=== PATIENT | female | born 1975 | race Caucasian/White ===

== ENCOUNTER 2017-11-03 14:24 | Emergency (ER) | payer OTHER ==
[~2017-11-03] VITALS: Ht 165.1 cm; Wt 108.0 kg
[~2017-11-03 14:24] MED LIST: CEPH-568 PO; IBUP-1480 PO; OXYC-130 PO
[2017-11-03 14:33] VITALS: BP_SYST 135
[2017-11-03] MEDS ORDERED: NACL 0.9% 1,000 ML IV ONE (14:49)
[2017-11-03] MEDS ORDERED: MORPHINE SULFATE 10 MG/ML VIAL IM ONE (15:00)
[2017-11-03] MEDS ORDERED: ONDANSETRON HCL 4 MG/2 ML VIAL IVP ONE (15:00)
[2017-11-03 15:12] LABS: BASOPHILS # (AUTO) 0.1 K/uL (0.0-0.2); BASOPHILS % (AUTO) 0.7 % (0.0-2.0); EOSINOPHILS # (AUTO) 0.1 K/uL (0.0-0.4); EOSINOPHILS % (AUTO) 0.5 % (0.0-4.0); HEMATOCRIT 41.7 % (36-48); HEMOGLOBIN 13.9 g/dL (12.0-16.0); LYMPHOCYTES # (AUTO) 1.5 K/uL (1.0-5.5); MEAN CORPUSCULAR HEMOGLOBIN 31 pg (27-31); MEAN CORPUSCULAR HGB CONC 33 % (32-36); MEAN CORPUSCULAR VOLUME 93 fL (79.0-98.0); MONOCYTES # (AUTO) 0.5 K/uL (0.0-1.0); MONOCYTES % (AUTO) 3.6 % (1.7-9.3); NEUTROPHILS # (AUTO) 11.4 K/uL (1.8-7.7); NEUTROPHILS % (AUTO) 84.2 % (40.0-70.0); PLATELET COUNT (AUTO) 435 K/uL (130-430); RED BLOOD CELL COUNT(AUTO) 4.46 MIL/uL (4.2-6.2); RED CELL DISTRIBUTION WIDTH 12.8 % (9.0-15.0); WHITE BLOOD COUNT (AUTO) 13.6 K/uL (4.8-10.8)
[2017-11-03 15:29] LABS: CALCIUM 9.1 mg/dL (8.4-11.0); CREATININE 0.76 mg/dL (0.55-1.30); POTASSIUM 3.8 mmol/L (3.5-5.1)
[2017-11-03 15:40] LABS: ALBUMIN 3.7 g/dL (3.4-4.8); TOTAL BILIRUBIN 0.6 mg/dL (0.0-1.0)
[2017-11-03] MEDS ORDERED: MORPHINE 4 MG/ML INJ. SYRINGE IVP ONE ×2 (16:15→17:15)
[2017-11-03] MEDS ORDERED: PANTOPRAZOLE SODIUM 40 MG/VIAL (PROTONIX) IVP ONE (16:45)
[2017-11-03] MEDS ORDERED: MAG HYDROX/AL HYDROX/SIMETH 30 ML, BELLADONNA ALKALOIDS/PHENOBARB 10 ML, LIDOCAINE VISC... PO ONE ×3 (16:45)
[2017-11-03 17:48] LABS: BILIRUBIN,URINE NEGATIVE (NEGATIVE); BLOOD, URINE 1+ (NEGATIVE); CLARITY/URINE SL CLOUDY (CLEAR); COLOR,URINE YELLOW (YELLOW); GLUCOSE,URINE NEGATIVE (NEGATIVE); KETONES,URINE 3+ (NEGATIVE); LEUKOCYTE ESTERASE ,URINE NEGATIVE (NEGATIVE); NITRITE, URINE POSITIVE (NEGATIVE); PROTEIN URINE NEGATIVE (NEGATIVE); UROBILINOGEN,URINE 0.2 (0.2-1.0)
[2017-11-03 17:58] LABS: BACTERIA,URINE MANY /HPF (None Seen); WBC,URINE 0-3 /HPF (0-3)
[2017-11-03 17:59] LABS: MUCUS,URINE None Seen /LPF (None Seen)
[2017-11-03 18:28] VITALS: BP_SYST 140
== END 2017-11-03 18:28 | disposition home or self-care (01) ==
LOC: SED 14:24
DX: R10.13 Epigastric pain (principal); R11.2 Nausea with vomiting, unspecified; R03.0 Elevated blood-pressure reading, without diagnosis of hypertension; Z90.710 Acquired absence of both cervix and uterus; Z88.1 Allergy status to other antibiotic agents; Z88.5 Allergy status to narcotic agent
CPT/HCPCS: 36415; 74176; 76700; 80053; 81000; 81025; 83690; 85025; 87086; 96361; 96374; 96375; 96376; 99285; C9113; J2001; J2270 ×2; J2405; J7030

== ENCOUNTER 2018-04-24 00:48 | Inpatient (IN) | payer OTHER ==
[~2018-04-24] VITALS: Ht 165.1 cm; Wt 117.9 kg
[~2018-04-24 00:48] MED LIST changes: -IBUP-1480 PO; +IBUP800T54 PO
[2018-04-24 01:10] VITALS: BP_SYST 114
--- NOTE | 2018-04-24 01:10 | NUR ---
Patient to ER bed 5 to gown for evaluation. Side rails up. Report given to Gabby.
[2018-04-24] MEDS ORDERED: NACL 0.9% 1,000 ML IV ONE (01:32)
--- NOTE | 2018-04-24 01:34 | NUR ---
ER at bedside examining patient.
[2018-04-24] MEDS ORDERED: ONDANSETRON HCL 4 MG/2 ML VIAL IVP ONE (01:45)
[2018-04-24] MEDS ORDERED: DIPHENHYDRAMINE INJ 50 MG/ML VIAL IVP ONE (01:45)
[2018-04-24] MEDS ORDERED: MORPHINE 4 MG/ML INJ. SYRINGE IVP ONE (01:45)
--- NOTE | 2018-04-24 01:45 | NUR ---
Pt states she has upper abdominal pain radiating to back 01/25 starting last night after dinner. pt states she is nauseous and has been vomiting the last few hours. no other injuries or conmplaints noted at this time.
--- NOTE | 2018-04-24 02:02 | NUR ---
morphine administered. pt tolerated well. will continue to monitor.
[2018-04-24 02:23] LABS: CALCIUM 8.9 mg/dL (8.4-11.0); CREATININE 0.73 mg/dL (0.55-1.30)
[2018-04-24 02:24] LABS: BASOPHILS # (AUTO) 0.3 K/uL (0.0-0.2); BASOPHILS % (AUTO) 1.9 % (0.0-2.0); EOSINOPHILS % (AUTO) 0.2 % (0.0-4.0); HEMATOCRIT 40.5 % (36-48); HEMOGLOBIN 13.9 g/dL (12.0-16.0); LYMPHOCYTES # (AUTO) 0.9 K/uL (1.0-5.5); LYMPHOCYTES % (AUTO) 6.7 % (20.5-51.5); MEAN CORPUSCULAR HEMOGLOBIN 32 pg (27-31); MEAN CORPUSCULAR HGB CONC 34 % (32-36); MEAN CORPUSCULAR VOLUME 92 fL (79.0-98.0); MONOCYTES # (AUTO) 0.3 K/uL (0.0-1.0); MONOCYTES % (AUTO) 2.3 % (1.7-9.3); NEUTROPHILS # (AUTO) 12.4 K/uL (1.8-7.7); NEUTROPHILS % (AUTO) 88.9 % (40.0-70.0); PLATELET COUNT (AUTO) 439 K/uL (130-430); RED CELL DISTRIBUTION WIDTH 12.8 % (9.0-15.0); WHITE BLOOD COUNT (AUTO) 13.9 K/uL (4.8-10.8)
[2018-04-24 02:27] LABS: ALBUMIN 3.8 g/dL (3.4-4.8); TOTAL BILIRUBIN 0.4 mg/dL (0.0-1.0)
--- NOTE | 2018-04-24 02:54 | NUR ---
Pt unable to urinate, stating "I don't think I can pee." Notified Dr. Bernabe.
[2018-04-24] MEDS ORDERED: fentaNYL CITRATE/PF 100 MCG/2 ML AMP IVP ONE (03:00)
--- NOTE | 2018-04-24 03:01 | NUR ---
Medication was given, pt tolerated well. No adverse reaction, will continue to monitor.
[2018-04-24] MEDS ORDERED: ACETAMINOPHEN 325 MG TABLET PO PRN (03:15)
--- NOTE | 2018-04-24 03:16 | NUR ---
Patient will be admitted to care of Dr. Kaminski. Admitted to Med Surg unit. Will go to room 116 B. Belongings list completed. Summary report printed. Report will be given at bedside.
--- NOTE | 2018-04-24 03:16 | NUR ---
Transfer to [facility] via stretcher. Licensed nurse present. IV present no signs or symptoms of infiltration.
--- NOTE | 2018-04-24 03:29 | NUR ---
ADMISSION NOTE Received patient from ER via [facility] under the care of Dr Gordy Dumas Patient admitted with diagnosis of Acute Pancreatitis. Patient is awake, alert, oriented X 4. Patient oriented to hospital room, call light, toileting, pain management and safety-teach back done. Patient informed that her nurse will be Silva MÉNDEZ and that her room number is 116B. Call light within reach. Will continue to monitor patient condition.
--- NOTE | 2018-04-24 03:40 | NUR ---
ADMISSION ASSESSMENT DONE. EDUCATED ON USE OF CALL LIGHT ,FALL PRECAUTION. IVF INFUSING TO LEFT FOREARM,SITE CLEAR.
--- NOTE | 2018-04-24 04:05 | NUR ---
CONSULT CONSULT CALLED FOR DR. TORRES I SPOKE WITH JEROME SALINAS REASON FOR CONSULT: ACUTE PANCREATITIS REQUESTING CONSULT: DR. NESTOR [facility] MANA[facility] PHONE NUMBER: [phone]
[2018-04-24] MEDS: NACL 0.9% 1,000 ML IV SCH ×3 (04:10→17:59)
[2018-04-24 04:14] VITALS: BP_SYST 117
[2018-04-24] MEDS: ONDANSETRON HCL 4 MG/2 ML VIAL IVP PRN ×4 (05:01→21:43)
[2018-04-24] MEDS: MORPHINE 4 MG/ML INJ. SYRINGE IVP PRN ×5 (05:04→21:45)
--- NOTE | 2018-04-24 05:05 | NUR ---
MEDICATED WITH MORPHINE 2MG FOR PAIN LEVEL OF 8/10 OF ABDOMINAL PAIN.
--- NOTE | 2018-04-24 07:00 | NUR ---
CLOSING: ALL NEEDS WERE ATTENDED. FEELS NAUSEATED WITH PAIN AND MORPHINE ,ZOFRAN IV GIVEN. NO ACUTE DISTRESS.ENDORSED TO AM RN FOR CONTINUITY OF CARE.
[2018-04-24 07:06] LABS: BASOPHILS # (AUTO) 0.1 K/uL (0.0-0.2); BASOPHILS % (AUTO) 0.8 % (0.0-2.0); EOSINOPHILS % (AUTO) 0.3 % (0.0-4.0); HEMATOCRIT 37.7 % (36-48); MEAN CORPUSCULAR HEMOGLOBIN 32 pg (27-31); MEAN CORPUSCULAR HGB CONC 35 % (32-36); MEAN CORPUSCULAR VOLUME 92 fL (79.0-98.0); MONOCYTES # (AUTO) 0.7 K/uL (0.0-1.0); MONOCYTES % (AUTO) 5.3 % (1.7-9.3); NEUTROPHILS # (AUTO) 11.3 K/uL (1.8-7.7); NEUTROPHILS % (AUTO) 85.6 % (40.0-70.0); PLATELET COUNT (AUTO) 397 K/uL (130-430); RED BLOOD CELL COUNT(AUTO) 4.09 MIL/uL (4.2-6.2); WHITE BLOOD COUNT (AUTO) 13.1 K/uL (4.8-10.8)
[2018-04-24 07:30] VITALS: BP_SYST 132
[2018-04-24 07:34] LABS: ALBUMIN 3.2 g/dL (3.4-4.8); CALCIUM 8.6 mg/dL (8.4-11.0); CREATININE 0.61 mg/dL (0.55-1.30); POTASSIUM 3.7 mmol/L (3.5-5.1); TOTAL BILIRUBIN 0.4 mg/dL (0.0-1.0)
--- NOTE | 2018-04-24 08:00 | NUR ---
AM NOTES Patient laying in bed awake, alert, orientedx4. No s/s of SOB. IV site patent, intact, dressing is dry. Bed in lowest position, call light within reach.
[2018-04-24 08:33] LABS: BILIRUBIN,URINE NEGATIVE (NEGATIVE); CLARITY/URINE CLEAR (CLEAR); COLOR,URINE YELLOW (YELLOW); GLUCOSE,URINE NEGATIVE (NEGATIVE); KETONES,URINE 2+ (NEGATIVE); LEUKOCYTE ESTERASE ,URINE NEGATIVE (NEGATIVE); NITRITE, URINE NEGATIVE (NEGATIVE); PROTEIN URINE NEGATIVE (NEGATIVE); UROBILINOGEN,URINE 0.2 (0.2-1.0)
[2018-04-24 08:43] LABS: BLOOD, URINE TRACE (NEGATIVE)
[2018-04-24] MEDS: PANTOPRAZOLE SODIUM 40 MG/VIAL (PROTONIX) IVP SCH (08:44)
[2018-04-24 08:50] LABS: BACTERIA,URINE FEW /HPF (None Seen); MUCUS,URINE 1+ /LPF (None Seen); WBC,URINE 0-3 /HPF (0-3)
--- NOTE | 2018-04-24 10:00 | NUR ---
Nutrition Update Tera Scale 18 noted. Pt admitted for acute pancreatitis. Diet: NPO BMI: 44.6 kg/m2 RD to follow per nutrition care standards.
[2018-04-24] MEDS ORDERED: LACTULOSE 20 GM/30 ML UDC PO ONE ×2 (11:15→20:45)
--- NOTE | 2018-04-24 11:50 | NUR ---
RADIOLOGY AT BEDSIDE Performing abdominal ultrasound.
[2018-04-24 11:56] VITALS: BP_SYST 119
--- NOTE | 2018-04-24 12:36 | NUR ---
DVT PPX Spoke with Dr. Kaminski regarding DVT ppx. SCD to bilateral legs ordered and in place. Patient educated on indications and benefits of SCD's. Will cont. to monitor patient.
--- NOTE | 2018-04-24 13:00 | NUR ---
PAIN/NAUSEA Patient complains of severe abdominal pain and nausea. Morphine and Zofran given IVP. Will cont. to monitor.
--- NOTE | 2018-04-24 16:00 | NUR ---
ROUNDS Patient laying in bed resting. No s/s of distress or SOB. Patient states pain medication is effective. All needs being met. Bed in lowest position, call light within reach. Will cont. to monitor.
[2018-04-24 16:18] VITALS: BP_SYST 134
--- NOTE | 2018-04-24 17:34 | NUR ---
PAIN/NAUSEA Patient complains of severe abdominal/back pain. Morphine and Zofran given. Will cont. to monitor.
--- NOTE | 2018-04-24 18:02 | NUR ---
C/O BLOATING Patient reports feeling of stomach bloating and not being able to pass gas. Patient encouraged to ambulate around hallway.
--- NOTE | 2018-04-24 18:13 | NUR ---
CLOSING NOTES Patient in bed, awake, alert, oriented. No s/s of SOB. Patient able to tolerate ambulating around hallway. All need met throughout shift. IV site patent, intact. Safety and fall precautions maintained throughout shift. Bed in lowest position, call light within reach. Will endorse to oncoming RN.
--- NOTE | 2018-04-24 19:15 | NUR ---
REPORT AT BEDSIDE FROM AM RN. PATIENT IN BED FEELING MODERATE PAIN.MOTHER AND SISTER AT BEDSIDE DEMANDING FOR PAIN MEDICINE AND RESULTS OF ABDOMINAL XRAYS DONE DURING DAY SHIFT.AM RN TOLD THEM PAIN MED WAS GIVEN 2 HRS AGO AND RESULTS IS NOT IN COMPUTER YET. FAMILIES ASKED QUESTIONS IN A SARCASTIC WAY. REASSURANCES PROVIDED.WILL MONITOR CLOSELY.
--- NOTE | 2018-04-24 20:25 | NUR ---
Piter RODRIGUEZ CALLED BACK. NOTIFIED MD PATIENT NOT BEING RELIEVED WITH CURRENT PAIN MED ,PATIENT WANTING DILAUDID WHICH ,IT WORKS WELL.PATIENT HAD BEEN CRYING AND CANT HAVE A COMFORTABLE POSITION. MD STATED NO DILAUDID THIS TIME, INSTEAD INCREASED MORPHINE DOSE TO 8MG IV Q 4 PRN. INFORMED MD WITH PRELIMINARY RESULT OF ABDOMINAL X RAYS ASKED AND FAXED BY [facility]. INFORMED PATIENT PLAN OF CARE OF ME.WILL WAIT FOR PHARMACIST TO VERIFY.
--- NOTE | 2018-04-24 21:40 | NUR ---
HAD BEEN WAITING FOR PHARMACY TO ENTER MEDS.X2.CALLED OUTPATIENT TO ENTER MEDS ORDERED
--- NOTE | 2018-04-24 21:40 | NUR ---
NAUSEA/VOMITING: NAUSEATED AND VOMITTED 250 ML SLIMY WHITISH/LIGHT BROWNISH EMESIS. ZOFRAN 4MG IV GIVEN.
--- NOTE | 2018-04-24 21:45 | NUR ---
PAIN: PATIENT CRYING DUE TO SEVERE ABDOMINAL PAIN LEVEL 10/10. PAIN MED AVAILABLE THIS TIME.MORPHINE 8MG IV GIVEN SLOWLY. IV SITE CLEAR.
--- NOTE | 2018-04-24 22:30 | NUR ---
ASSESSED PATIENT. IN BED CALM AND RESTING. BEARABLE PAIN LEVEL 5/10.
--- NOTE | 2018-04-24 22:45 | NUR ---
CLEANSED FACE AND ORAL CARE DONE BY SELF.
--- NOTE | 2018-04-24 23:05 | NUR ---
PATIENT IN BED CALM. ABLE TO TAKE LACTULOSE PO. RINSED MOUTH AFTER.
[2018-04-25] VITALS: BP_SYST 135
[2018-04-25] MEDS: ONDANSETRON HCL 4 MG/2 ML VIAL IVP PRN ×6 (02:22→22:18)
[2018-04-25 02:25] VITALS: BP_SYST 132
--- NOTE | 2018-04-25 02:25 | NUR ---
PAIN/NAUSEA /VOID: PATIENT CALLED FOR PAIN MED DUE TO GENERALIZED ABDOMINAL PAIN ,LEVEL 9/10. DILAUDID 8MG IV AND ZOFRAN 4MG IV GIVEN. AMBULATED TO BATHROOM TO VOID ,TOLERATED WELL. DISCUSSED SIDE EFFECTS OF MS OF DIZZINESS ,STATED DONT FEEL DIZZY,
[2018-04-25] MEDS: MORPHINE 4 MG/ML INJ. SYRINGE IVP PRN ×6 (02:27→22:22)
--- NOTE | 2018-04-25 05:25 | NUR ---
PAIN: PATIENT CALLED FOR PAIN MEDS. VITAL SIGNS TAKEN .STABLE. MORPHINE 8MG IV GIVEN SLOWLY WITH RELIEF ,DOES NOT LAST LONG.
[2018-04-25] MEDS: NACL 0.9% 1,000 ML IV SCH ×3 (06:15→23:11)
--- NOTE | 2018-04-25 07:05 | NUR ---
CLOSING: ABDOMINAL PAIN FAIRLY CONTROLLED BY MORPHINE 8MG IV ,BUT BETTER THAN BEFORE. AMBULATES TO BATHROOM TO VOID. ZOFRAN IV GIVEN WITH MORPHINE TO CONTROL N/V.SAFETY MEASURES OBSERVED AND IMPLEMENTED DURING THE SHIFT. NO ACUTE CARDIOPULMONARY DISTRESS.
[2018-04-25 07:48] LABS: ALBUMIN 2.9 g/dL (3.4-4.8); CALCIUM 8.6 mg/dL (8.4-11.0); CREATININE 0.6 mg/dL (0.55-1.30); POTASSIUM 3.5 mmol/L (3.5-5.1); TOTAL BILIRUBIN 0.4 mg/dL (0.0-1.0)
[2018-04-25 08:25] VITALS: BP_SYST 125
[2018-04-25] MEDS: PANTOPRAZOLE SODIUM 40 MG/VIAL (PROTONIX) IVP SCH (08:30)
--- NOTE | 2018-04-25 08:30 | NUR ---
opening notes, received pt in bed, pt is aaox4, c/o of amdominal pain, informed pt there is no pain med i can not give her any pain med at this time, pt aware that pain med is due at 1015 am. safety precaution in place. call light in reach. encouraged to call for assist and pain meds . will cont to monitor.
[2018-04-25] MEDS: NA PHOS,M-B/NA PHOS,DI-BA 118 ML (FLEET ENEMA) RC ONE ×2 (10:20→11:49)
--- NOTE | 2018-04-25 10:20 | NUR ---
PT GIVEN PAIN MED , PT HAS BEEN MOANING IN PAIN. PT ALSO GIVEN ZOFRAN, PT REFUSED FLEETS ENEMA AT THIS TIME.
[2018-04-25 10:55] LABS: HEMATOCRIT 38.4 % (36-48); HEMOGLOBIN 12.9 g/dL (12.0-16.0); MEAN CORPUSCULAR HEMOGLOBIN 31 pg (27-31); MEAN CORPUSCULAR HGB CONC 34 % (32-36); MEAN CORPUSCULAR VOLUME 92 fL (79.0-98.0); PLATELET COUNT (AUTO) 376 K/uL (130-430); RED BLOOD CELL COUNT(AUTO) 4.19 MIL/uL (4.2-6.2); RED CELL DISTRIBUTION WIDTH 12.9 % (9.0-15.0); WHITE BLOOD COUNT (AUTO) 21.2 K/uL (4.8-10.8)
[2018-04-25 10:57] LABS: BAND % (MANUAL) 11 % (0-6); BASOPHILS % (MANUAL) 0 % (0-2); EOSINOPHILS % (MANUAL) 0 % (0-7); LYMPHOCYTES % (MANUAL) 2 % (20-46); MONOCYTES % (MANUAL) 4 % (0-11)
--- NOTE | 2018-04-25 11:53 | NUR ---
DR ARREOLA WAS HERE SEEN AND EXAMINED PT, EXPLAINED TO PT AND PT'S MOM AND SISTER POC.
--- NOTE | 2018-04-25 11:54 | NUR ---
PT GIVEN FLEETS ENEMA, PT TOLERATED WELL.
[2018-04-25] MEDS ORDERED: MAGNESIUM CITRATE 300 ML ORAL SOLUTION PO ONE (12:45)
--- NOTE | 2018-04-25 16:35 | NUR ---
PT IN BED, STILL HAVING ABDOMINAL PAIN, PT IS AWARE THAT NEXT PAIN MED WILL BE AROUND 1800. NO BM YET AFTER GIVEN 1 DOSE OF MAG CITRATE. WILL CONT TO MONITOR.
[2018-04-25 18:00] VITALS: BP_SYST 142
--- NOTE | 2018-04-25 18:08 | NUR ---
MORPHINE SULFATE GIVEN FOR PAIN OF 02/24. ALSO GIVEN ZOFRAN. PT HAVE DRY HEAVES.
--- NOTE | 2018-04-25 18:54 | NUR ---
CLOSING NOTES, PT HAS BEEN IN PAIN THE WHOLE DAY , GIVEN PAIN MEDS PRN. VITALS WNL. NO FEVER. PER DR ARREOLA, WAITING FOR SOME TEST RESULT RE [facility] AND IF NECESSARY PT WILL BE TRANSFERRED TO [facility]. PT GIVEN FLEETS ENEMA AND MAG CITRATE BUT NO BM. WILL ENDORSE TO NIGHT RN.
[2018-04-25 19:40] VITALS: BP_SYST 148
--- NOTE | 2018-04-25 20:00 | NUR ---
INITIAL NOTES: PATIENT IN BED AWAKE ,ALERT ORIENTED X3. AMBULATORY. HAVING TOLERABLE ABDOMINAL PAIN. IVF INFUSING WELL. RECEIVED WITH HEATING PAD OVER ABDOMEN. NO BM THIS TIME. VITAL SIGNS STABLE. CALL LIGHT WITHIN REACH. BED IN LOW POSITION. WILL MONITOR CLOSELY.
--- NOTE | 2018-04-25 22:20 | NUR ---
PAIN/ BOWEL MOVEMENT; PATIENT CALLED FOR PAIN MED.ASSESSED. PAIN LEVEL 9/10. MORPHINE 8MG IV GIVEN ORDERED.STATED HAD 2 LOOSE STOOLS. NOT SEEN FLUSHED AFTER.
[2018-04-25 23:24] VITALS: BP_SYST 124
--- NOTE | 2018-04-26 00:40 | NUR ---
BOWEL MOVEMENT; PATIENT STATED HAD ANOTHER 2X LOOSE STOOL MEDIUM THIS TIME.
--- NOTE | 2018-04-26 02:35 | NUR ---
PAIN NAUSEA; PATIENT CALLED FOR ABDOMINAL PAIN WITH NAUSEA. MEDICATED WITH MORPHINE 8MG IV AND ZOFRAN 4MGIV. CALL LIGHT NEAR BY.
[2018-04-26] MEDS: ONDANSETRON HCL 4 MG/2 ML VIAL IVP PRN ×2 (02:36→06:36)
[2018-04-26] MEDS: MORPHINE 4 MG/ML INJ. SYRINGE IVP PRN ×5 (02:38→20:02)
--- NOTE | 2018-04-26 04:35 | NUR ---
PAIN/NAUSEA; CALLED FOR PAIN MED. MS 8MG IV GIVEN. IVF INFUSING WELL.
--- NOTE | 2018-04-26 07:00 | NUR ---
CLOSING: NO ACUTE CARDIOPULMONARY DISTRESS. STILL WITH EPIGASTRIC RT./LEFT ABDOMINAL PAIN. MORPHINE IV WAS GIVEN. NO DISTRESS. CALL LIGHT WITHIN REACH.
[2018-04-26 07:38] LABS: CALCIUM 8.2 mg/dL (8.4-11.0); CREATININE 0.68 mg/dL (0.55-1.30); POTASSIUM 3.2 mmol/L (3.5-5.1)
[2018-04-26 08:00] VITALS: BP_SYST 127
--- NOTE | 2018-04-26 08:00 | NUR ---
initial notes rec patient asleep but arousable to stimuli. resp easy and unlabored. no sob noted. bed in low position and side rails up and locked. call light within reached and knows when to call for assistance. fall/safety precaution reinforced. seen by dr rust and ordered to go home if okay with dr florence.
[2018-04-26] MEDS ORDERED: POTASSIUM CHLORIDE 10 MEQ TAB.PRT.SR PO ONE (08:45)
[2018-04-26] MEDS: PANTOPRAZOLE SODIUM 40 MG/VIAL (PROTONIX) IVP SCH (09:18)
--- NOTE | 2018-04-26 10:00 | NUR ---
rounds dr florence came and will not okay the discharge at this point. resting comfortaby
--- NOTE | 2018-04-26 12:00 | NUR ---
rounds ambulated with family hallway and himanshu well. call light within reached. no sob noted.
[2018-04-26] MEDS: NACL 0.9% 1,000 ML IV SCH ×2 (13:31→20:05)
--- NOTE | 2018-04-26 14:12 | NUR ---
Dietitian Recommendations *Recommend clear liquid diet per MD orders. *Recommend advance diet when medically appropriate. (GI Soft). Please see Nutritional Assessment for details. ESVIN, RD
[2018-04-26 16:00] VITALS: BP_SYST 140
--- NOTE | 2018-04-26 16:20 | NUR ---
rounds medicated for pain as requested and ordered. went to sleep after and call light within reached.
--- NOTE | 2018-04-26 18:39 | NUR ---
closing notes up sitting at bedside. refused to eat dinner at this time. ambulates t bedside. bed to the lowest position and side rails up and locked. call light iwhtn reached and knows when to call for assistance.
--- NOTE | 2018-04-26 19:30 | NUR ---
OPENING NOTES RECEIVED PATIENT IN BED AAO X4. BREATHING UNLABORED ON ROOM AIR. PATIENT STILL COMPLAINING OF ABDOMINAL PAIN. IVF INFUSING ORDERED. PLAN OF CARE REVIEWED WITH PATIENT. CALL LIGHT WITH IN REACH. BED IN LOWEST LOCKED POSITION WITH BED ALARM ON.
[2018-04-26 19:42] VITALS: BP_SYST 149
--- NOTE | 2018-04-26 20:02 | NUR ---
PAIN MGT PATIENT MEDICATED WITH MORPHINE 8 MG ORDERED FOR C/O 01/25 ABDOMINAL PAIN. VITAL SIGNS STABLE. PATIENT EDUCATED OF POSSIBLE SIDE EFFECTS OF MEDICATION. FALL/SAFETY PRECAUTIONS OBSERVED.
[2018-04-27 00:05] VITALS: BP_SYST 140
[2018-04-27] MEDS: MORPHINE 4 MG/ML INJ. SYRINGE IVP PRN ×6 (00:09→20:11)
--- NOTE | 2018-04-27 00:09 | NUR ---
PAIN MGT PATIENT MEDICATED WITH MORPHINE ORDERED FOR C/O ABDOMINAL PAIN 12/25. VITAL SIGNS STABLE. BED CALL LIGHT WITH IN REACH. BED ALARM ON.
--- NOTE | 2018-04-27 02:35 | NUR ---
ROUNDS PATIENT RESTING IN BED. BREATHING UNLABORED. IVF INFUSING ORDERED. CALL LIGHT WITH IN REACH.
[2018-04-27 03:54] VITALS: BP_SYST 133
--- NOTE | 2018-04-27 03:58 | NUR ---
PAIN MGT PATIENT MEDICATED WITH MORPHINE ORDERED FOR C/O ABDOMINAL PAIN 01/25. VITAL SIGNS STABLE. CALL LIGHT WITH IN REACH.
[2018-04-27] MEDS: NACL 0.9% 1,000 ML IV SCH ×2 (05:27→16:14)
--- NOTE | 2018-04-27 06:32 | NUR ---
CLOSING NOTES PATIENT AWAKE RESTING IN BED. BREATHING UNLABORED ON ROOM AIR. PATIENT REMAINS C/O ABDOMINAL PAIN. IVF INFUSING ORDERED WITH IV LINE INTACT. NEEDS ATTENDED. CALL LIGHT WITH IN REACH. BED IN LOWEST LOCKED POSITION.
--- NOTE | 2018-04-27 07:17 | NUR ---
opening note pt sitting in chair at bedside. no distress noted. ivf infusing noted. safety maintained.
[2018-04-27 07:50] VITALS: BP_SYST 131
[2018-04-27] MEDS: PANTOPRAZOLE SODIUM 40 MG/VIAL (PROTONIX) IVP SCH (08:19)
[2018-04-27] MEDS: SIMETHICONE 80 MG TAB.CHEW PO PRN ×2 (08:22→18:22)
--- NOTE | 2018-04-27 11:18 | NUR ---
Discharge Planning: DCP faxed pt order to Leatha at [facility] (f [phone] p [phone])
--- NOTE | 2018-04-27 11:30 | NUR ---
PT REQUESTING TO TAKE A SHOWER AT THIS TIME. PT GIVEN SUPPLIES- ACCOMPANIED BY MOTHER.
[2018-04-27 12:05] VITALS: BP_SYST 146
--- NOTE | 2018-04-27 12:15 | NUR ---
PT C/O ABD PAIN GIVEN MORPHINE ORDERED. SAFETY MAINTAINED.
[2018-04-27 14:00] VITALS: BP_SYST 115
--- NOTE | 2018-04-27 14:00 | NUR ---
PATIENT RESTING: Patient resting quietly. No acute distress noted. Vital signs within normal range.
--- NOTE | 2018-04-27 14:58 | NUR ---
Not cleared for DC: Spoke to Dr. Gonzalez on the phone, states patient still having pain, need pain medication Q 4hrs. He states that the patient is not ready to be DC today.
--- NOTE | 2018-04-27 16:20 | NUR ---
PT C/O ABD PAIN MEDICATED ORDERED. NO OTHER DISTRESS NOTED. SAFETY MAINTAINED.
--- NOTE | 2018-04-27 18:22 | NUR ---
pt given simethicone at this time. for bloating and gas, no other distress noted.
--- NOTE | 2018-04-27 18:37 | NUR ---
closing note all needs met through shift, safety maintained, will endorse care to overnight stocker.
--- NOTE | 2018-04-27 19:15 | NUR ---
OPENING NOTES RECEIVED PATIENT IN BED AAAO X4. BREATHING UNLABORED ON ROOM AIR. IVF INFUSING ORDERED. PATIENT STILL C/O ABDOMINAL PAIN. PLAN OF CARE REVIEWED WITH PATIENT. CALL LIGHT WITH IN REACH. BED IN LOWEST LOCKED POSITION.
[2018-04-27 19:59] VITALS: BP_SYST 133
--- NOTE | 2018-04-27 20:11 | NUR ---
PAIN MGT PATIENT MEDICATED WITH MORPHINE ORDERED FOR C/O 9/10 ABDOMINAL PAIN. PATIENT INSTRUCTED TO OBSERVE FALL/SAFETY PRECAUTIONS. CALL LIGHT WITH IN REACH.
--- NOTE | 2018-04-27 23:35 | NUR ---
ENDORSED CARE PATIENT SITTING IN CHAIR INSIDE ROOM. IVF INFUSING ORDERED. NO DISTRESS NOTED. ENDORSED CARE TO ROSANNE MÉNDEZ FOR FURTHER CARE AND MANAGEMENT.
[2018-04-28] MEDS: MORPHINE 4 MG/ML INJ. SYRINGE IVP PRN ×3 (00:15→08:13)
--- NOTE | 2018-04-28 00:15 | NUR ---
Pain mgmt Received pt from [facility]. Pt AAO, ambulates to the bathroom. No s/s distress noted. Pt c/o upper abd throbbing pain 01/25. Pt denies any N/V. Medicated with Morphine 8mg IVP as needed. IVF infusing R. FA 22G no s/s infiltration noted. Call light within reach. Encouraged pt to call for assistance. Will continue to monitor.
[2018-04-28] MEDS: SIMETHICONE 80 MG TAB.CHEW PO PRN ×2 (00:58→08:16)
[2018-04-28 01:07] VITALS: BP_SYST 133
[2018-04-28] MEDS: NACL 0.9% 1,000 ML IV SCH ×2 (02:12→11:27)
--- NOTE | 2018-04-28 02:20 | NUR ---
Rounds Pt asleep. No s/s distress noted. IVF infusing as ordered. Call light within reach. To monitor.
--- NOTE | 2018-04-28 04:10 | NUR ---
Pain mgmt Pt awake, c/o abd pain 9/10, medicated with Morphine 8mg IVP as needed. Pt denies N/V. Call light within reach. To monitor.
--- NOTE | 2018-04-28 07:15 | NUR ---
Closing notes Pt alert, awake. No s/s distress noted. IV fluids infusing as ordered R. FA 22G no s/s infiltration noted. Pt c/o pain at this time, informed pt pain med will be due at 0800am. Pt agreeable. Call light within reach. Endorsed to AM nurse.
--- NOTE | 2018-04-28 08:00 | NUR ---
Opening notes Received pt in bed, pt is aaox4, c/o of abdominal pain, will medicate. safety precaution in place. call light in reach. encouraged to call for assist and pain meds . will cont to monitor.
[2018-04-28] MEDS: PANTOPRAZOLE SODIUM 40 MG/VIAL (PROTONIX) IVP SCH (08:13)
[2018-04-28] MEDS ORDERED: HYDROcodone/ACETAMIN 7.5-325 MG TAB PO PRN (09:00)
[2018-04-28] MEDS ORDERED: HYDROcodone/ACETAMIN 10-325 MG TAB PO PRN (09:30)
[2018-04-28 09:49] LABS: BASOPHILS # (AUTO) 0.5 K/uL (0.0-0.2); BASOPHILS % (AUTO) 4.9 % (0.0-2.0); EOSINOPHILS # (AUTO) 0.4 K/uL (0.0-0.4); EOSINOPHILS % (AUTO) 3.7 % (0.0-4.0); HEMATOCRIT 31.8 % (36-48); HEMOGLOBIN 10.9 g/dL (12.0-16.0); LYMPHOCYTES # (AUTO) 1.4 K/uL (1.0-5.5); LYMPHOCYTES % (AUTO) 13.5 % (20.5-51.5); MEAN CORPUSCULAR HEMOGLOBIN 32 pg (27-31); MEAN CORPUSCULAR HGB CONC 34 % (32-36); MEAN CORPUSCULAR VOLUME 94 fL (79.0-98.0); MONOCYTES # (AUTO) 1.1 K/uL (0.0-1.0); MONOCYTES % (AUTO) 10.5 % (1.7-9.3); NEUTROPHILS % (AUTO) 67.4 % (40.0-70.0); PLATELET COUNT (AUTO) 349 K/uL (130-430); RED BLOOD CELL COUNT(AUTO) 3.39 MIL/uL (4.2-6.2); WHITE BLOOD COUNT (AUTO) 10.4 K/uL (4.8-10.8)
[2018-04-28 10:29] LABS: CALCIUM 8.3 mg/dL (8.4-11.0); CREATININE 0.63 mg/dL (0.55-1.30); POTASSIUM 3.5 mmol/L (3.5-5.1)
[2018-04-28 10:34] LABS: ALBUMIN 2.2 g/dL (3.4-4.8); TOTAL BILIRUBIN 0.4 mg/dL (0.0-1.0)
--- NOTE | 2018-04-28 10:45 | NUR ---
PT IN BED, INFORMED ABT CHANGED OF PAIN MED. DID NOT REQUIRE PAIN MED THIS TIME. ENCOURAGED TO CALL .
[2018-04-28 12:16] LABS: ANTI NUCLEAR AB WITH REFLEX Positive (Negative)
[2018-04-28 12:49] VITALS: BP_SYST 137
[2018-04-28] MEDS ORDERED: HYDR-2489 PO (13:56)
[2018-04-28] MEDS ORDERED: PRO40 PO (13:57)
[2018-04-28 14:02] VITALS: BP_SYST 137
--- NOTE | 2018-04-28 14:51 | NUR ---
D/C Patient Patient given medication reconciliation form and D/C instructions. Exit Care provided. Patient verbalized understanding. MD discussed with patient the results and treatment provided. Ambulatory with steady gait for discharge to home. Patient in stable condition, ID band removed. IV catheter removed, intact and dressing applied, no active bleeding. Rx of given. Patient educated on pain management. All belongings sent with patient.
== END 2018-04-28 14:51 | disposition home or self-care (01) | DRG 439 ==
LOC: SED 00:48 → SMU 03:07
PROVIDERS: ADMIT Internal Medicine; ATTEND Internal Medicine
DX: K85.90 Acute pancreatitis without necrosis or infection, unspecified (principal); Z68.41 Body mass index [BMI] 40.0-44.9, adult; E78.1 Pure hyperglyceridemia; E66.9 Obesity, unspecified; K59.00 Constipation, unspecified; Z90.710 Acquired absence of both cervix and uterus
CPT/HCPCS: 36415; 76700-TC; 80048; 80053; 80061; 81000-TC; 82787; 83690-TC; 84478-TC; 85007; 85025; 85027; 86038; 96361; 96374; 96375; 99285; C9113; J1200; J2270; J2405; J3010; J7030